=== PATIENT | female | born 1975 | race Caucasian/White ===

== ENCOUNTER 2016-08-18 09:04 | Emergency (ER) | payer OTHER | END 2016-08-18 11:11 | disposition home or self-care (01) | LOC: D.ER 09:04 | DX: S83.91XA Sprain of unspecified site of right knee, initial encounter (principal); X58.XXXA Exposure to other specified factors, initial encounter; Y93.45 Activity, cheerleading; Y92.89 Other specified places as the place of occurrence of the external cause; J45.909 Unspecified asthma, uncomplicated ==